=== PATIENT | male | born 1970 ===

== ENCOUNTER 2016-11-11 02:22 | Emergency (ER) | payer MEDICAID ==
[2016-11-11 02:39] VITALS: BP 128/89; RESP 20; TEMP 98; O2SAT 98
--- NOTE | 2016-11-11 03:28 | C.PDOC ---
History Of Present Illness 46 year old patient presents to the ED complaining of a laceration to his chin. Patient states he was shaving and he cut himself tonight. He is unable to stop the bleeding since 10 pm which promoted the visit. Patient also complains of a small area of swelling and erythema to the left arm. Patient denies current IVDA or fever. Time Seen by Provider: 11/11/16 03:07 Chief Complaint (Nursing): Abnormal Skin Integrity History Per: Patient History/Exam Limitations: no limitations Onset/Duration Of Symptoms: Hrs (10 pm tonight) Current Symptoms Are (Timing): Still Present Quality Of Symptoms: Other (bleeding) Severity: Mild Pain Scale Rating Of: 2 Recent travel outside of the [place]: No Past Medical History Reviewed: Historical Data, Nursing Documentation, Vital Signs Vital Signs: Last Vital Signs Temp 98 F 11/11/16 02:34 Pulse 84 11/11/16 03:40 Resp 20 11/11/16 02:34 BP 128/89 11/11/16 02:34 Pulse Ox 98 11/11/16 03:59 - Medical History PMH: Anxiety, Bipolar Disorder, Depression - [employer] Procedures DETOXIFICATION SERVICES FOR SUBSTANCE ABUSE TREATMENT (05/29/16) INDIVIDUAL PSYCHOTHERAPY, SUPPORTIVE (05/29/16) Family History: States: Unknown Family Hx - Social History Hx Alcohol Use: Yes Hx Substance Use: Yes - Immunization History Hx Tetanus Toxoid Vaccination: No Hx Influenza Vaccination: No Hx Pneumococcal Vaccination: No Review Of Systems Except As Marked, All Systems Reviewed And Found Negative. Constitutional: Negative for: Fever Skin: Positive for: Other (laceration) Physical Exam - Physical Exam Appears: Non-toxic, No Acute Distress Skin: Warm, Dry, Other (small bleeding pimple to chin with no fluctuant mass and minimal active bleeding to the area; 1cm induration with erythema to the dorsal aspect of the left forearm with no drainage and no fluctuance) Head: Atraumatic Eye(s): bilateral: Normal Inspection, PERRL, EOMI Extremity: Normal ROM, No Tenderness, No Swelling, Other (SEE SKIN) ED Course And Treatment O2 Sat by Pulse Oximetry: 98 (RA) Pulse Ox Interpretation: Normal Progress Note: Wound was cleansed. Pressure and dressing applied. There was persistent bleeding so dermabond was use. Dressing was placed. Disposition Counseled Patient/Family Regarding: Diagnosis, Need For Followup - Disposition Referrals: Carol Ann Tanner MD [Staff Provider] - Disposition: HOME/ ROUTINE Disposition Time: 03:33 Condition: GOOD Additional Instructions: Apply warm compress to area Apply bacitracin oint Follwo up with PMD in 2 days Return to ER if worse Prescriptions: Bacitracin Ointment [Bacitracin] 30 gm TOP BID #1 tube Instructions: Puncture Wound (ED), Insect Bite or Sting (ED) - Clinical Impression Clinical Impression: Puncture wound of chin, Insect bite forearm - PA / [employer]FFEE [employer] / Resident Statement MD/DO has reviewed & agrees with the documentation as recorded. - Scribe Statement The provider has reviewed the documentation as recorded by the Scribe Anjana Sims All medical record entries made by the Scribe were at my direction and personally dictated by me. I have reviewed the chart and agree that the record accurately reflects my personal performance of the history, physical exam, medical decision making, and the department course for this patient. I have also personally directed, reviewed, and agree with the discharge instructions and disposition.
[2016-11-11 03:41] VITALS: PULSE 84
== END 2016-11-11 03:41 | disposition home or self-care (01) ==
LOC: C.ER 02:22
DX: S01.83XA Puncture wound without foreign body of other part of head, initial encounter (principal); W45.8XXA Other foreign body or object entering through skin, initial encounter; Y93.89 Activity, other specified; Y92.002 Bathroom of unspecified non-institutional (private) residence as the place of occurrence of the external cause; S50.862A Insect bite (nonvenomous) of left forearm, initial encounter; W57.XXXA Bitten or stung by nonvenomous insect and other nonvenomous arthropods, initial encounter; Y93.9 Activity, unspecified; Y92.9 Unspecified place or not applicable

== ENCOUNTER 2016-12-09 07:45 | Emergency (ER) | payer MEDICAID ==
[2016-12-09] MEDS ORDERED: Tetanus/Diphtheria Toxoids 0.5 ml Syringe IM ONE (08:14)
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
[2016-12-09 09:07] VITALS: TEMP 98; O2SAT 98
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
[2016-12-09 11:03] VITALS: BP 153/93; PULSE 69; RESP 98
--- NOTE | 2016-12-09 12:03 | RAD ---
HISTORY: RIGHT UPPER CHEST/SHOULDER PAIN AFTER FALL COMPARISON: None available TECHNIQUE: Chest PA and lateral FINDINGS: LUNGS: No focal consolidation. Please note that chest x-ray has limited sensitivity for the detection of pulmonary masses. PLEURA: No significant pleural effusion identified. No definite pneumothorax . CARDIOVASCULAR: The cardiomediastinal silhouette appears within normal limits of size. OSSEOUS STRUCTURES: No acute osseous abnormality identified. VISUALIZED UPPER ABDOMEN: Unremarkable. OTHER FINDINGS: None. IMPRESSION: No focal consolidation, significant pleural effusion, or definite pneumothorax identified.
== END 2016-12-09 11:06 | disposition home or self-care (01) ==
LOC: C.ER 07:45
DX: S05.11XA Contusion of eyeball and orbital tissues, right eye, initial encounter (principal); S20.211A Contusion of right front wall of thorax, initial encounter; S00.81XA Abrasion of other part of head, initial encounter; S40.819A Abrasion of unspecified upper arm, initial encounter; S80.819A Abrasion, unspecified lower leg, initial encounter; W10.9XXA Fall (on) (from) unspecified stairs and steps, initial encounter; Y92.009 Unspecified place in unspecified non-institutional (private) residence as the place of occurrence of the external cause; F10.10 Alcohol abuse, uncomplicated; Y90.9 Presence of alcohol in blood, level not specified

== ENCOUNTER 2017-01-11 17:28 | Emergency (ER) | payer MEDICAID ==
[2017-01-11 17:34] VITALS: BP 145/99; PULSE 103; RESP 16; TEMP 98.5; O2SAT 95
--- NOTE | 2017-01-11 18:17 | C.PDOC ---
History Of Present Illness 46 year old male presents to the ER with complaint of bleeding on the right side of his chin after picking at a pimple. Patient has been seen before in the ER for similar bleeding wounds. He denies facial trauma, fever, discharge, rash. Time Seen by Provider: 01/11/17 17:39 Chief Complaint (Nursing): Abnormal Skin Integrity History Per: Patient History/Exam Limitations: no limitations Onset/Duration Of Symptoms: Hrs Current Symptoms Are (Timing): Still Present Location Of Injury: Right: Face (Chin) Quality Of Symptoms: Other (Bleeding) Severity: Mild Past Medical History Reviewed: Historical Data, Nursing Documentation, Vital Signs Vital Signs: Last Vital Signs Temp 98.5 F 01/11/17 17:32 Pulse 103 H 01/11/17 17:32 Resp 16 01/11/17 17:32 BP 145/99 H 01/11/17 17:32 Pulse Ox 95 01/11/17 19:53 - Medical History PMH: Anxiety, Bipolar Disorder, Depression Surgical History: No Surg Hx - [facility] Procedures DETOXIFICATION SERVICES FOR SUBSTANCE ABUSE TREATMENT (05/29/16) INDIVIDUAL PSYCHOTHERAPY, SUPPORTIVE (05/29/16) Family History: States: No Known Family Hx - Social History Hx Alcohol Use: Yes Hx Substance Use: Yes - Immunization History Hx Tetanus Toxoid Vaccination: No Hx Influenza Vaccination: No Hx Pneumococcal Vaccination: No Review Of Systems Except As Marked, All Systems Reviewed And Found Negative. Constitutional: Negative for: Fever, Chills Cardiovascular: Negative for: Chest Pain Respiratory: Negative for: Shortness of Breath Skin: Positive for: Other (bleeding wound on chin ). Negative for: Rash Neurological: Negative for: Weakness, Numbness Physical Exam - Physical Exam Appears: Well, Non-toxic, No Acute Distress Skin: Normal Color, Warm, Dry, No Rash Head: Other (Right side of chin, approx 0.5 cm pustule with mild blood oozing, no surrounding erythema, no discharge, no fluctuance/induration) Eye(s): bilateral: Normal Inspection Oral Mucosa: Moist Cardiovascular: Rhythm Regular Respiratory: Normal Breath Sounds, No Rales, No Rhonchi, No Wheezing Neurological/Psych: Oriented x3 ED Course And Treatment O2 Sat by Pulse Oximetry: 95 (Room air) Pulse Ox Interpretation: Normal Progress Note: Gel foam applied to area, and pressure dressing done by me. Patient instructed to keep dressing on for 48 hours. He understands he should return to ED if symptoms worsen. Otherwise patient instructed to follow up with PMD/clinic in 1-2 days. Reevaluation Time: 18:15 Reassessment Condition: Improved Disposition Counseled Patient/Family Regarding: Diagnosis, Need For Followup - Disposition Referrals: Carol Ann Tanner MD [Staff Provider] - Disposition: HOME/ ROUTINE Disposition Time: 18:20 Condition: STABLE Additional Instructions: LEAVE DRESSING ON FOR 48 HOURS RETURN TO ER IF BLEEDING RETURNS Forms: General Discharge Instructions Print Language: GERMAN - POA Present On Arrival: None - Clinical Impression Clinical Impression: Bleeding from wound, Pustule - Scribe Statement The provider has reviewed the documentation as recorded by the Scribbarbara Leos All medical record entries made by the Jessicaibbarbara were at my direction and personally dictated by me. I have reviewed the chart and agree that the record accurately reflects my personal performance of the history, physical exam, medical decision making, and the department course for this patient. I have also personally directed, reviewed, and agree with the discharge instructions and disposition.
== END 2017-01-11 18:24 | disposition home or self-care (01) ==
LOC: C.ER 17:28
DX: L08.9 Local infection of the skin and subcutaneous tissue, unspecified (principal)

== ENCOUNTER 2017-03-23 07:46 | Day surgery (SDC) | payer MEDICAID ==
[2017-03-23 08:10] VITALS: BMI 29.8
--- NOTE | 2017-03-23 10:14 | CP.SDSHP ---
Same Day Surgery H & P - History Proposed Procedure: EGD Pre-Op Diagnosis: EtOH Cirrhosis. GERD - Allergies Allergies: Allergies No Known Allergies Allergy (Verified 03/23/17 08:09) - Physical Exam General Appearance: nl Vital Signs: Vital Signs 03/23/17 08:30 Temperature 97.1 F L Pulse Rate 57 L Respiratory 20 Rate Blood Pressure 132/84 O2 Sat by Pulse 99 Oximetry Mental Status: Alert & Oriented x3 Neuro: WNL Heart: WNL Lungs: WNL GI: WNL - {Optional Preform as Required} Abdomen: WNL - Impression Impression: GERD. EToh cirrhosis Pt. Evaluated Today:Candidate for Anesthesia & Procedure: Yes - Date & Time Date: 03/23/17 Time: 10:13 Short Stay Discharge - Short Stay Discharge Admitting Diagnosis/Reason for Visit: ALCOHOLIC HEPATITIS / GERD Disposition: HOME/ ROUTINE
[2017-03-23] MEDS ORDERED: Propofol 10 mg/ml Inj (20 ML) ONE (10:19)
[2017-03-23 11:00] VITALS: TEMP 99.7
[2017-03-23 14:01] VITALS: O2SAT 97
[2017-03-23 14:04] VITALS: BP 130/92; PULSE 62; RESP 15
== END 2017-03-23 11:45 | disposition home or self-care (01) ==
LOC: C.ENDO 07:46
PROVIDERS: ATTEND Internal Medicine
DX: B37.81 Candidal esophagitis (principal); K70.30 Alcoholic cirrhosis of liver without ascites; K76.6 Portal hypertension; K29.50 Unspecified chronic gastritis without bleeding; K31.89 Other diseases of stomach and duodenum
CPT/HCPCS: 43239; 88305; 88312; 88342; J2704

== ENCOUNTER 2017-07-31 14:59 | Emergency (ER) | payer MEDICAID ==
[2017-07-31 14:59] VITALS: BMI 29.8
[2017-07-31] MEDS ORDERED: Epinephrine /Lidocaine HCL 1:100,000/2% 30 ml INJ ONE (16:25)
--- NOTE | 2017-07-31 16:25 | C.PDOC ---
History Of Present Illness 46 yr old male presents to the ER for evaluation for spontaneous bleeding from a possible ingrown hair on the chin. Patient states the bleeding didn't stop prompting the ED visit. Patient denies trauma, fever, chills or facial swelling. Time Seen by Provider: 07/31/17 15:29 Chief Complaint (Nursing): Abnormal Skin Integrity History Per: Patient History/Exam Limitations: no limitations Onset/Duration Of Symptoms: Sudden Onset (MOLDER PIPE COVERING) Past Medical History Reviewed: Historical Data, Nursing Documentation, Vital Signs Vital Signs: Last Vital Signs Temp 97.9 F 07/31/17 17:18 Pulse 78 07/31/17 17:18 Resp 19 07/31/17 17:18 BP 128/74 07/31/17 17:18 Pulse Ox 99 07/31/17 17:18 - Medical History PMH: Anxiety, Bipolar Disorder, Depression Surgical History: Endoscopy, Tonsillectomy - [facility] Procedures DETOXIFICATION SERVICES FOR SUBSTANCE ABUSE TREATMENT (05/29/16) INDIVIDUAL PSYCHOTHERAPY, SUPPORTIVE (05/29/16) Family History: States: No Known Family Hx - Social History Hx Alcohol Use: Yes Hx Substance Use: No (Rehab) - Immunization History Hx Tetanus Toxoid Vaccination: No Hx Influenza Vaccination: No Hx Pneumococcal Vaccination: No Review Of Systems Except As Marked, All Systems Reviewed And Found Negative. Constitutional: Negative for: Fever, Chills Skin: Positive for: Other (Bleeding from chin) Physical Exam - Physical Exam Appears: Non-toxic, No Acute Distress Skin: Warm, Dry, No Rash, Other (Area of pinpoint bleeding to the chin. No evidence of cellulitis) Head: Atraumatic, Normacephalic Eye(s): bilateral: Normal Inspection Oral Mucosa: Moist, No Trismus Cardiovascular: Rhythm Regular Respiratory: Normal Breath Sounds, No Rales, No Rhonchi, No Stridor, No Wheezing Extremity: Normal ROM, No Swelling Neurological/Psych: Oriented x3, Normal Speech, Normal Motor ED Course And Treatment O2 Sat by Pulse Oximetry: 97 (RA) Pulse Ox Interpretation: Normal Medical Decision Making Medical Decision Making: Pressure was applied to the wound with no success. Gel foam applied without success. Silver nitrate was applied for hemostasis with success. Disposition - Disposition Referrals: Carol Ann Tanner MD [Staff Provider] - Disposition: HOME/ ROUTINE Disposition Time: 17:06 Condition: GOOD Additional Instructions: Follow up with the medical doctor within 1-2 days. Return if worsened Instructions: Skin Avulsion (ED) Forms: [facility] (Slovenian) - Clinical Impression Clinical Impression: Skin avulsion - PA / HAIR BLENDER / Resident Statement MD/DO has reviewed & agrees with the documentation as recorded. - Scribe Statement The provider has reviewed the documentation as recorded by the Scribe Jennifer Henry All medical record entries made by the Scribe were at my direction and personally dictated by me. I have reviewed the chart and agree that the record accurately reflects my personal performance of the history, physical exam, medical decision making, and the department course for this patient. I have also personally directed, reviewed, and agree with the discharge instructions and disposition.
[2017-07-31] MEDS ORDERED: Silver Nitrate Topical - Stick TOP ONE (16:26)
[2017-07-31] MEDS ORDERED: Absorbable Gelatin Sponge Size 12-7 MM STA (16:26)
[2017-07-31] MEDS ORDERED: Silver Nitrate Topical - Stick ONE (16:38)
[2017-07-31] MEDS ORDERED: Absorbable Gelatin Sponge Size 12-7 ONE (16:38)
[2017-07-31 17:19] VITALS: BP 128/74; PULSE 78; RESP 19; TEMP 97.9
[2017-08-01 21:46] VITALS: O2SAT 97
== END 2017-07-31 17:18 | disposition home or self-care (01) ==
LOC: C.ER 14:59
DX: S01.80XA Unspecified open wound of other part of head, initial encounter (principal); X58.XXXA Exposure to other specified factors, initial encounter; Y92.89 Other specified places as the place of occurrence of the external cause

== ENCOUNTER 2017-10-02 06:51 | Emergency (ER) | payer MEDICAID ==
[2017-10-02 06:51] VITALS: BMI 29.8
[2017-10-02 07:23] VITALS: RESP 20; O2SAT 98
--- NOTE | 2017-10-02 07:54 | C.PDOC ---
History Of Present Illness 47-year-old male w/PMHx includes Schizophrenia, ETOH Abuse, presents to the emergency department for evaluation of body aches, chills, and nausea since yesterday. States that today he woke up and didn't feel right, when he checked blood pressure at home, saw that it was high, resulting in him coming to the ED for evaluation. Pt admits, ran out of his psych medication for past 1.5 months. Last drink- last night. Otherwise, pt denies high fever, headache, dizziness, visual changes, focal deficits, neck pain, drooling, dysphagia, dyspnea, CP, SOB , palpitation, diaphoresis, abd. pain vomiting, diarrhea, back pain, UTI sx. Pt denies depression, suicidal or homocidal ideation, denies hallucination. Ambulate to ED for evaluation, appears comfortable, not in any apparent distress. Time Seen by Provider: 10/02/17 07:29 Chief Complaint (Nursing): High Blood Pressure History Per: Patient History/Exam Limitations: no limitations Onset/Duration Of Symptoms: Days Current Symptoms Are (Timing): Still Present Past Medical History Reviewed: Historical Data, Nursing Documentation, Vital Signs Vital Signs: Last Vital Signs Temp 99.4 F 10/02/17 09:51 Pulse 76 10/02/17 09:51 Resp 20 10/02/17 09:51 BP 142/93 H 10/02/17 09:51 Pulse Ox 98 10/02/17 09:51 - Medical History PMH: Anxiety, Bipolar Disorder, Depression Denies: Colonic Polyps, Fractures, HIV, HTN, Chronic Kidney Disease, Seizures , Sexually Transmitted Disease, Sleep Apnea, TIA Surgical History: [facility] Procedures DETOXIFICATION SERVICES FOR SUBSTANCE ABUSE TREATMENT (05/29/16) INDIVIDUAL PSYCHOTHERAPY, SUPPORTIVE (05/29/16) Family History: States: No Known Family Hx - Social History Hx Alcohol Use: Yes Hx Substance Use: No (Rehab) - Immunization History Hx Tetanus Toxoid Vaccination: No Hx Influenza Vaccination: No Hx Pneumococcal Vaccination: No Review Of Systems Except As Marked, All Systems Reviewed And Found Negative. Constitutional: Positive for: Malaise. Negative for: Fever Cardiovascular: Negative for: Chest Pain, Palpitations Respiratory: Negative for: Shortness of Breath Gastrointestinal: Positive for: Nausea. Negative for: Vomiting, Abdominal Pain , Diarrhea Musculoskeletal: Negative for: Neck Pain, Back Pain Skin: Negative for: Rash Neurological: Negative for: Weakness, Numbness, Headache, Dizziness Physical Exam - Physical Exam Appears: Well, Non-toxic, No Acute Distress Skin: Normal Color, Warm, Dry, No Rash Head: Normacephalic Eye(s): bilateral: PERRL Ear(s): Bilateral: Normal Nose: No Flaring, No Discharge Oral Mucosa: Moist, No Drooling Throat: No Erythema, No Drooling Neck: Normal ROM, Supple Cardiovascular: Rhythm Regular, No Murmur, No JVD, Other ((-) carotid bruits B/L ) Respiratory: No Decreased Breath Sounds, No Accessory Muscle Use, No Stridor, No Wheezing Gastrointestinal/Abdominal: Soft, No Tenderness, No Distention, No Guarding Back: No CVA Tenderness Extremity: Normal ROM, No Pedal Edema, No Deformity, No Swelling Neurological/Psych: Oriented x3, Normal Speech, Normal Motor, Normal Sensation, Normal Reflexes ED Course And Treatment ECG: Interpreted By Me, Viewed By Me ECG Rhythm: Sinus Rhythm Interpretation Of ECG: SR@90/min, NAD, no acute T wave or ST-T changes. O2 Sat by Pulse Oximetry: 98 (RA) Pulse Ox Interpretation: Normal - Radiology CXR: Interpreted by Me, Viewed By Me CXR Interpretation: Yes: No Acute Disease Progress Note: On re-evaluation, pt is afebrile, hemodynamicaly stable. Non- toxic. Tolerate Po well in ED. PulsEOx 98% RA. ENT: no acute findings. neck: Supple, (-)JVD, (-) carotid bruits B/L. Lungs: CTA B/L, BS equal B/L. CVS: (+) S1S2, reg. Abd: benign, (-) guarding, (-) rebound. neurologicaly intact. CXR , EKG- review, normal study. Pt has clinical findings c/w HTN, viral illness. Pt advised. Ref. to f/u with PMD, Psych in 2 -3 days for re-eavl. return if any new changes. Disposition Counseled Patient/Family Regarding: Studies Performed, Diagnosis, Need For Followup, Rx Given - Disposition Referrals: [facility] [Outside] Disposition: HOME/ ROUTINE Disposition Time: 09:10 Condition: STABLE Additional Instructions: ENCOURAGE FLUIDS FOLLOW UP WITH PMD, PSYCHIATRIST IN 2-3 DAYS FOR RE-EVALUATION. RETURN TO ED IF ANY WORSENING OR NEW CHANGES. Instructions: Viral Syndrome (ED), Hypertension (ED) Forms: [employer] (Mozambican) - Clinical Impression Clinical Impression: Hypertension, Alcohol dependence, Viral illness - Scribe Statement The provider has reviewed the documentation as recorded by the Scribe (Sebas Avendano) All medical record entries made by the Scribe were at my direction and personally dictated by me. I have reviewed the chart and agree that the record accurately reflects my personal performance of the history, physical exam, medical decision making, and the department course for this patient. I have also personally directed, reviewed, and agree with the discharge instructions and disposition.
--- NOTE | 2017-10-02 09:13 | RAD ---
HISTORY: Cough COMPARISON: Chest x-ray performed 12/09/16 TECHNIQUE: Chest PA and lateral FINDINGS: Examination limited by habitus. LUNGS: No focal consolidation. Please note that chest x-ray has limited sensitivity for the detection of pulmonary masses. PLEURA: No significant pleural effusion identified. No definite pneumothorax . CARDIOVASCULAR: Heart size appears within normal limits. OSSEOUS STRUCTURES: No acute osseous abnormality identified. VISUALIZED UPPER ABDOMEN: Unremarkable. OTHER FINDINGS: None. IMPRESSION: No focal consolidation, significant pleural effusion, or definite pneumothorax identified.
[2017-10-02 09:52] VITALS: BP 142/93; PULSE 76; TEMP 99.4
--- NOTE | 2017-10-05 11:27 | CARD ---
APPROVED REPORT EKG Measurement Heart [id number] ID [id number] <Conclusion> Normal sinus rhythm Nonspecific ST abnormality Abnormal ECG
== END 2017-10-02 10:05 | disposition home or self-care (01) ==
LOC: C.ER 06:51
DX: I10 Essential (primary) hypertension (principal); F10.20 Alcohol dependence, uncomplicated; B34.9 Viral infection, unspecified

== ENCOUNTER 2018-10-12 09:32 | Emergency (ER) | payer MEDICAID ==
[2018-10-12 09:33] VITALS: BMI 29.8
[2018-10-12] MEDS ORDERED: Sodium Chloride 0.9% 1,000 ML IV ONE (09:48)
--- NOTE | 2018-10-12 09:52 | C.PDOC ---
History Of Present Illness 48 y/o male with a PMHx of psychiatric illness and substance abuse (on methadone program, last taken this AM) presents today complaining of flu-like symptoms for 1 day. Patient reports generalized myalgias, headache, nausea, and dry cough. Associated with a fever since this morning, with Tmax of 102 at home. Patient has not taken any medications for symptom relief. He did not receive a flu shot this year. Patient denies any recent travel. He is otherwise tolerating PO. Patient denies any vomiting, chest pain, SOB, dizziness, visual changes, back pain, or abdominal pain. Time Seen by Provider: 10/12/18 09:47 Chief Complaint (Nursing): Flu-like Symptoms History Per: Patient History/Exam Limitations: no limitations Onset/Duration Of Symptoms: Days (1) Current Symptoms Are (Timing): Still Present Location Of Pain: Diffuse Myalgias, Headache Associated Symptoms: Fever, Cough, Nausea Recent travel outside of the [place]: No Past Medical History Reviewed: Historical Data, Nursing Documentation, Vital Signs Vital Signs: Last Vital Signs Temp 99.6 F 10/12/18 09:38 Pulse 107 H 10/12/18 09:38 Resp 18 10/12/18 09:38 BP 147/91 H 10/12/18 09:38 Pulse Ox 96 10/12/18 09:38 - Medical History PMH: Anxiety, Bipolar Disorder, Depression Denies: Colonic Polyps, Fractures, HIV, HTN, Chronic Kidney Disease, Seizures, Sexually Transmitted Disease, Sleep Apnea, TIA Surgical History: Endoscopy, Tonsillectomy - [facility] Procedures DETOXIFICATION SERVICES FOR SUBSTANCE ABUSE TREATMENT (05/29/16) INDIVIDUAL PSYCHOTHERAPY, SUPPORTIVE (05/29/16) Family History: States: Unknown Family Hx - Social History Hx Alcohol Use: Yes Hx Substance Use: No (Rehab/on methadone) - Immunization History Hx Tetanus Toxoid Vaccination: No Hx Influenza Vaccination: No Hx Pneumococcal Vaccination: No Review Of Systems Except As Marked, All Systems Reviewed And Found Negative. Constitutional: Positive for: Fever Eyes: Negative for: Vision Change Cardiovascular: Negative for: Chest Pain Respiratory: Positive for: Cough. Negative for: Shortness of Breath, Sputum Gastrointestinal: Positive for: Nausea. Negative for: Vomiting, Abdominal Pain, Diarrhea Genitourinary: Negative for: Dysuria, Hematuria Musculoskeletal: Negative for: Back Pain Neurological: Positive for: Headache. Negative for: Weakness, Dizziness Physical Exam - Physical Exam Appears: Well, Non-toxic, No Acute Distress Skin: Warm, Dry, No Rash Head: Atraumatic, Normacephalic Eye(s): bilateral: Normal Inspection, PERRL, EOMI Nose: Normal Oral Mucosa: Moist Throat: Normal, No Erythema, No Exudate Neck: Normal ROM, Supple, Other (No meningeal signs) Chest: Symmetrical Cardiovascular: Rhythm Regular, No Murmur Respiratory: Normal Breath Sounds, No Rales, No Rhonchi, No Wheezing Gastrointestinal/Abdominal: Soft, No Tenderness, No Distention Back: Normal Inspection, No CVA Tenderness, No Vertebral Tenderness Extremity: Normal ROM, Capillary Refill (<2s) Extremity: Bilateral: Atraumatic, Normal Color And Temperature Pulses: Left Radial: Normal, Right Radial: Normal, Left Dorsalis Pedis: Normal, Right Dorsalis Pedis: Normal Neurological/Psych: Oriented x3, Normal Speech, Normal Cranial Nerves, Normal Motor, Normal Sensation Gait: Steady ED Course And Treatment - Laboratory Results Result Diagrams: 10/12/18 10:10 10/12/18 10:10 ECG: Viewed By Ga ECG Rhythm: Sinus Rhythm Interpretation Of ECG: Rate 92; NSR; Normal intervals; No STEMI or other signs of acute ischemia Rate From EC O2 Sat by Pulse Oximetry: 96 (RA) Pulse Ox Interpretation: Normal - Other Rad CXR X-Ray: Read By Radiologist Interpretation: Accession No. : [id number]. Patient Name / ID : NAZ [id number] / [id number]. Exam Date : 10/12/2018 10:03:26 ( Approved ). Study Comment : Sex / Age : M / 48Y. Creator : Fabi Helms MD. Dictator : Fabi Helms MD. Computer Technician : Wind Turbine Installer : Fabi Helms MD. Approver2 : Report Date : 10/12/2018 10:30:04. My Comment : . HISTORY: cough, fever. COMPARISON: Chest x-ray performed 10/02/17. TECHNIQUE: Chest PA and lateral. FINDINGS: LUNGS: No focal consolidation. Please note that chest x-ray has limited sensitivity for the detection of pulmonary masses. PLEURA: No significant pleural effusion identified. No definite pneumothorax . CARDIOVASCULAR: Heart size appears within normal limits. No atherosclerotic calcification present. OSSEOUS STRUCTURES: No acute osseous abnormality identified. VISUALIZED UPPER ABDOMEN: Unremarkable. OTHER FINDINGS: None. IMPRESSION: No focal consolidation. Medical Decision Making Medical Decision Making: Impression: Flu-like symptoms Initial Plan: - Blood work - Flu swab - Rapid strep - Urinalysis - EKG - chest x-ray - IV fluids - Reassess Progress/Updates: Labs reviewed. Significant for thrombocytopenia, elevated LFTs, per patient's baseline. Flu and strep negative. Throat culture sent. Discussed lab results with ED attending Dr. Ferguson, who agrees with plan of care and disposition. CXR negative for active disease EKG shows NSR at 92, no signs of ischemia Will treat patient empirically for flu, initial dose of PO Tamiflu given in the ED. Patient is still complaining of nausea. Will give 10 mg IV Reglan. On reassessment patient is resting comfortably, reports resolution of nausea, VSS. Patient is stable for discharge. Provided Rx for Tamiflu and Reglan, patient advised to take meds as written and follow up with PMD. Diagnostic testing results and plan of care discussed with patient. Strict instructions given regarding prescription use, importance of followup, and signs/symptoms to return to ER including chest pain, SOB, or any other new/worsening symptoms. Pt verbalized understanding of discussion. Patient is A&Ox3, ambulating with steady gait, with vital signs stable for discharge. Disposition Counseled Patient/Family Regarding: Studies Performed, Diagnosis, Need For Followup, Rx Given - Disposition Referrals: [facility] [Outside] Disposition: HOME/ ROUTINE Disposition Time: 12:10 Condition: CRITICAL Additional Instructions: Tamiflu every 12 hours for 5 days, 9 more doses Reglan every 12 hours as needed for nausea Increase fluids Rest, no strenuous activity Followup with primary doctor or clinic within 2 days Return to ER with any new/worsening symptoms Prescriptions: Metoclopramide HCl [Reglan] 10 mg PO Q12H PRN #10 tablet PRN Reason: Nausea/Vomiting Oseltamivir Cap [Tamiflu] 75 mg PO Q12H #9 cap Instructions: Flu, Adult (DC) Forms: General Discharge Instructions, [facility] (Congolese), Work Excuse - POA Present On Arrival: None - Clinical Impression Clinical Impression: Influenza-like illness - PA / SERVICE LOSS CONTROL CONSULTANT / Resident Statement MD/DO has reviewed & agrees with the documentation as recorded. - Scribe Statement The provider has reviewed the documentation as recorded by the Jessicaibbarbara Kate All medical record entries made by the Jessicaibbarbara were at my direction and personally dictated by me. I have reviewed the chart and agree that the record accurately reflects my personal performance of the history, physical exam, medical decision making, and the department course for this patient. I have also personally directed, reviewed, and agree with the discharge instructions and disposition.
[2018-10-12 10:13] LABS: EOS % 0.1 % (0.0-4.0); LYMPH # 0.5 K/uL (1.0-4.3); MEAN CORPUSCULAR HGB CONC 34.2 g/dL (33.0-37.0); NEUT # 7.2 K/uL (1.8-7.0); NEUT % 82.3 % (50.0-75.0); RED CELL DISTRIBUTION WIDTH 14.2 % (11.5-14.5)
[2018-10-12] MEDS ORDERED: Sodium Chloride 0.9% 1,000 ML ONE (10:18)
[2018-10-12 10:20] LABS: BASO % 0.6 % (0.0-2.0); HEMOGLOBIN 14.3 g/dL (12.0-18.0); MEAN CORPUSCULAR HEMOGLOBIN 33.8 pg (27.0-31.0); NRBC % 0.3 % (0.0-2.0); RBC 4.23 Mil/uL (4.40-5.90)
[2018-10-12 10:23] LABS: MEAN CELL VOLUME 98.7 fL (80.0-94.0); PLATELET COUNT 111 K/uL (130-400); WHITE BLOOD COUNT 8.7 K/uL (4.8-10.8)
[2018-10-12 10:29] LABS: ALBUMIN 3.5 g/dL (3.5-5.0); ALT/SGPT 90 U/L (21-72); AST/SGOT 137 U/L (17-59); BLOOD UREA NITROGEN 8 mg/dL (9-20); CALCIUM 8.5 mg/dl (8.6-10.4); GFR NON-AFRICAN AMERICAN > 60; INFLUENZA A B NEGATIVE FOR FLU A/B (NEGATIVE)
--- NOTE | 2018-10-12 10:33 | RAD ---
HISTORY: cough, fever COMPARISON: Chest x-ray performed 10/02/17 TECHNIQUE: Chest PA and lateral FINDINGS: LUNGS: No focal consolidation. Please note that chest x-ray has limited sensitivity for the detection of pulmonary masses. PLEURA: No significant pleural effusion identified. No definite pneumothorax . CARDIOVASCULAR: Heart size appears within normal limits. No atherosclerotic calcification present. OSSEOUS STRUCTURES: No acute osseous abnormality identified. VISUALIZED UPPER ABDOMEN: Unremarkable. OTHER FINDINGS: None. IMPRESSION: No focal consolidation.
[2018-10-12 10:51] LABS: LYMPHOCYTE 6 % (20-40); MONOCYTE 7 % (0-10); NEUTROPHIL 87 % (50-75); TOTAL CELLS COUNTED 100
[2018-10-12 10:52] LABS: PLATELET ESTIMATE SLIGHTLY DECREASED (NORMAL)
[2018-10-12 10:54] LABS: POLYCHROMIC SLIGHT; TARGET CELLS SLIGHT
[2018-10-12 10:54] LABS: SQUAMOUS EPITHIAL < 1 /hpf (0-5); URINE BILIRUBIN NEGATIVE (NEGATIVE); URINE BLOOD NEGATIVE (NEGATIVE); URINE CLARITY Clear (Clear); URINE COLOR Yellow (YELLOW); URINE GLUCOSE (UA) NORMAL (Normal); URINE LEUKOCYTE ESTERASE TRACE Leu/uL (Negative); URINE PROTEIN NEGATIVE (NEGATIVE)
[2018-10-12 12:13] VITALS: BP 143/72; PULSE 83; RESP 17; TEMP 99.4
[2018-10-12 15:44] VITALS: O2SAT 96
--- NOTE | 2018-10-13 21:57 | CARD ---
APPROVED REPORT Date of service: 10/12/2018 EKG Measurement Heart [id number] ID [id number] <Conclusion> Normal sinus rhythm Normal ECG
== END 2018-10-12 12:45 | disposition home or self-care (01) ==
LOC: C.ER 09:32
DX: J11.1 Influenza due to unidentified influenza virus with other respiratory manifestations (principal)
CPT/HCPCS: 71046; 80053; 81001; 84484; 85025; 87070; 87430; 87804; 93005; 96361; 96374; 99285; J2765; J7030